=== PATIENT | female | born 1960 | race Caucasian/White ===

== ENCOUNTER → 2016-06-20 | Outpatient (CLI) | payer OTHER ==
[~2016-06-20] VITALS: Ht 170.2 cm; Wt 160.9 kg
[~2016-06-20] MED LIST: ALLERGY RELIEF180 MG PO; AMLODIPINE BESYL5 MG PO; ATORVASTATIN CA10 MG PO; DAILY VITE1 EAC1 PO; FLONASE16 G1 BOTH NARES; IBGARD90 MG PO; IBUPROFEN800 MG PO; LEVSIN-SL0.125 MG SL; OMEPRAZOLE20 M2 PO; PROAIR RESPICL90 MCG IH; SINGULAIR10 MG PO; VENTOLIN HFA18 GM IH; VERAPAMIL HCL120 M2 PO; ZESTORETIC 10-1 EAC1 PO
== END | disposition home or self-care (01) ==
LOC: AMB 11:30
PROC: 0DJD8ZZ Inspection of Lower Intestinal Tract, Via Natural or Artificial Opening Endoscopic (ICD-10-PCS; principal; 2016-06-20)
DX: R10.32 Left lower quadrant pain (principal); R19.7 Diarrhea, unspecified; E66.01 Morbid (severe) obesity due to excess calories; Z68.43 Body mass index [BMI] 50.0-59.9, adult; K64.8 Other hemorrhoids; R19.4 Change in bowel habit; Z80.3 Family history of malignant neoplasm of breast; Z82.49 Family history of ischemic heart disease and other diseases of the circulatory system; Z83.3 Family history of diabetes mellitus; Z84.1 Family history of disorders of kidney and ureter; Z88.5 Allergy status to narcotic agent
CPT/HCPCS: 93005; J2250; J3010

== ENCOUNTER 2017-10-05 13:50 | Emergency (ER) | payer SELFPAY ==
[~2017-10-05] VITALS: Ht 170.2 cm; Wt 191.5 kg
[2017-10-05 14:56] LABS: BASOPHIL (%) 0.7 % (0-1); BASOPHIL COUNT 0.1 K/uL (0-0.1); EOSINOPHIL (%) 3.5 % (0-5); EOSINOPHIL COUNT 0.3 K/uL (0-0.3); HEMATOCRIT 43.4 % (36.0-46.0); HEMOGLOBIN 14.5 G/DL (11.9-15.5); IMMATURE GRANULOCYTE (%) 0.4 % (0.0-0.7); LYMPHOCYTE (%) 25.3 % (15-42); LYMPHOCYTE COUNT 1.8 K/uL (1.0-2.8); MCH 29.4 PG (29.0-34.0); MCHC 33.4 G/DL (30.0-36.0); MONOCYTE (%) 6.5 % (3-12); MONOCYTE COUNT 0.5 K/uL (0-0.8); NEUTROPHIL (%) 63.6 % (45-76); NEUTROPHIL COUNT 4.5 K/uL (1.8-6.4); PLATELET COUNT 251 K/uL (156-360); RBC DIS.WIDTH-CV 12.9 % (11.8-14.6); RBC DIS.WIDTH-SD 41.7 % (39-53); RED BLOOD COUNT 4.93 M/uL (3.80-5.20); WHITE BLOOD COUNT 7.1 K/uL (4.1-10.2)
[2017-10-05 15:23] LABS: CHLORIDE 102 MEQ/L (99-109); CREATININE 0.6 MG/DL (0.6-1.3); GFR ESTIMATE (CALCULATED) > 59 mL/min/; GLUCOSE 109 mg/dL (70-99); POTASSIUM 3.8 MEQ/L (3.7-5.4); SODIUM 139 MEQ/L (136-147); UREA NITROGEN (BUN) 19 mg/dL (9-23)
[2017-10-05] MEDS ORDERED: NAPROSYN500 MG PO (17:05)
[2017-10-05] MEDS ORDERED: LISINOPRIL-HCT1 EACH PO (17:05)
[2017-10-05] MEDS ORDERED: ACYCLOVIR800 MG PO (17:05)
[2017-10-05] MEDS ORDERED: DELTASONE20 M1 PO (17:05)
[2017-10-05 17:30] VITALS: BP 156/88
== END 2017-10-05 17:32 | disposition home or self-care (01) ==
LOC: EME 13:50
PROVIDERS: Emergency Medicine
DX: G51.0 Bell's palsy (principal); M54.2 Cervicalgia; R51 Headache; I10 Essential (primary) hypertension; J45.909 Unspecified asthma, uncomplicated
CPT/HCPCS: 70450; 80048; 85025; 93005; 99281; 99284; J1885